=== PATIENT | female | born 1975 | race Caucasian/White ===

== ENCOUNTER 2019-11-14 09:14 | Emergency (ER) | payer MEDICAID, OTHER ==
[2019-11-14] MEDS ORDERED: FLU Vacc QS2019-20(6MOS+)/PF 60 MCG/0.5 ML SYRINGE IM ONE (10:00)
[2019-11-14] MEDS ORDERED: Albuterol/Ipratropium 3.0-0.5 MG/3 ML Neb Soln NEB ONE (10:00)
--- NOTE | 2019-11-14 10:13 | EDM.PDOC ---
<Luciana Guerrero - Last Filed: 11/14/19 10:42> ED HPI GENERAL MEDICAL PROBLEM - General Chief Complaint: Respiratory Problem Stated Complaint: TROUBLE WITH LUNGS Time Seen by Provider: 11/14/19 09:27 Source of Information: Reports: Patient History Limitations: Reports: No Limitations - History of Present Illness INITIAL COMMENTS - FREE TEXT/NARRATIVE: 44-year-old female presents with cough and shortness of breath lasting two weeks but worsening in the last three days. She states that she visited the walk -in clinic where they diagnosed her with acute bronchitis and started treatment with an albuterol inhaler, doxycycline, and tessalon pearles. She has also been using ibuprofen for chest pain caused by coughing. At the walk-in clinic, they performed a chest XR and flu swab, both of which where negative for any acute process. The patient states that the cough is productive, producing mostly clear fluid with occasional brown clumps of mucus. She does describe a bloody taste but denies hemoptysis. She notes that the cough has been so severe that she has been unable to catch her breath when getting up from a chair at times, and it is causing lower rib pain. She also notes a mild headache. The patient recently quit smoking November 03. She also has a history of sinus congestion, but denies any significant sinus congestion at this time. The patient also denies nausea, vomiting, diarrhea, body aches, ear pain, and throat pain. No history of asthma or COPD. Onset: Other (2 weeks prior) Duration: Getting Worse Location: Reports: Chest Improves with: Reports: None Worsens with: Reports: Movement Associated Symptoms: Reports: Chest Pain (musculoskeletal ), cough w sputum, Fever/Chills, Headaches, Shortness of Breath. 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, albuterol Chest Pain Score (Numeric/FACES): 7 (along lower rib borders) - Related Data Allergies Allergy/AdvReac Type Severity Reaction Status Date / Time No Known Allergies Allergy Verified 11/14/19 09:34 Home Meds: Home Meds Albuterol Sulfate [Albuterol Sulfate Hfa] 1 - 2 puff IH Q4H PRN 11/14/19 [ History] Benzonatate [Tessalon Perle] 100 mg PO ASDIRECTED 11/14/19 [History] Doxycycline [Vibramycin] 0 mg PO BID 11/14/19 [History] predniSONE [Prednisone] 50 mg PO DAILY #7 tablet 11/14/19 [Rx] Past Medical History Respiratory History: Reports: Bronchitis, Recurrent, Pneumonia, Recurrent 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 Social & Family History - Tobacco Use Smoking Status *Q: Former Smoker Years of Tobacco use: 25 Packs/Tins Daily: 1 Used Tobacco, but Quit: No Month/Year Tobacco Last Used: Nov 2019 Second Hand Smoke Exposure: Yes - Caffeine Use Caffeine Use: Reports: Coffee, Soda - Recreational Drug Use Recreational Drug Use: No ED ROS GENERAL - Review of Systems Review Of Systems: See Below Constitutional: Reports: Fever, Fatigue HEENT: Reports: No Symptoms Respiratory: Reports: Shortness of Breath, Pleuritic Chest Pain, Cough, Sputum. Denies: Hemoptysis Cardiovascular: Reports: Dyspnea on Exertion. Denies: Blood Pressure Problem, Lightheadedness, Palpitations, Syncope Endocrine: Reports: No Symptoms GI/Abdominal: Reports: No Symptoms : Reports: No Symptoms Musculoskeletal: Reports: No Symptoms Skin: Reports: No Symptoms Neurological: Reports: Headache. Denies: Dizziness, Syncope, Trouble Speaking, Difficulty Walking Psychiatric: Reports: No Symptoms Hematologic/Lymphatic: Reports: No Symptoms Immunologic: Reports: No Symptoms ED EXAM, GENERAL - Physical Exam Exam: See Below Exam Limited By: No Limitations General Appearance: Alert, Mild Distress Eye Exam: Bilateral Eye: EOMI, Normal Inspection, PERRL Ears: Normal External Exam, Hearing Grossly Normal, Normal TMs Ear Exam: Bilateral Ear: Erythema (canals ) Nose: Other (turbinates inflamed bilaterally). No: Nasal Tenderness, Nasal Drainage, Nasal Flaring Throat/Mouth: Normal Inspection, Normal Lips, Normal Oropharynx, Normal Voice, No Airway Compromise Head: Atraumatic, Normocephalic Neck: Normal Inspection, Supple, Non-Tender, Full Range of Motion. No: Lymphadenopathy (L), Lymphadenopathy (R) Respiratory/Chest: No Accessory Muscle Use, Chest Non-Tender, Respiratory Distress (mild), Wheezing (throughout ). No: Crackles, Rhonchi, Stridor, Retractions, Prolonged Expiration Cardiovascular: Normal Peripheral Pulses, Regular Rate, Rhythm, No Edema, No Murmur GI/Abdominal: Normal Bowel Sounds, Soft, Non-Tender Neurological: Alert, Oriented, Normal Cognition, Normal Gait Psychiatric: Normal Affect, Normal Mood Skin Exam: Warm, Dry, Intact, Normal Color, No Rash Lymphatic: No Adenopathy Course - Vital Signs Last Recorded V/S: Last Vital Signs Temp 97.5 F 11/14/19 09:25 Pulse 95 11/14/19 09:25 Resp 20 11/14/19 09:25 BP 137/92 H 11/14/19 09:25 Pulse Ox 93 L 11/14/19 11:29 - Orders/Labs/Meds Orders: Active Orders 24 hr Category Date Time Status Influenza Vaccine Charge [RC] .DISCHARGE Care 11/14/19 09:48 Active RT Aerosol Therapy [RC] ASDIRECTED Care 11/14/19 10:00 Active RT Aerosol Therapy [RC] ASDIRECTED Care 11/14/19 11:29 Active Meds: Medications Discontinued Medications Generic Name Dose Route Start Last Admin Trade Name Jesica PRN Reason Stop Dose Admin Albuterol 2.5 mg 11/14/19 11:28 11/14/19 12:08 Proventil Neb Soln [facility] 11/14/19 11:29 2.5 mg ONETIME ONE Administration Albuterol/Ipratropium 3 ml 11/14/19 10:00 11/14/19 10:08 Duoneb 3.0-0.5 Mg/3 Ml [facility] 11/14/19 10:01 3 ml ONETIME ONE Administration Influenza Virus Vaccine 1 each 11/14/19 09:48 Pharmacy To Dose - Influenza Vaccine IM 11/14/19 09:49 ONETIME ONE Influenza Virus Vaccine 60 mcg 11/14/19 10:00 11/14/19 11:43 Fluzone Quad [id number] Syringe IM 11/14/19 10:01 60 mcg .ONCE ONE Administration Prednisone 40 mg 11/14/19 11:26 11/14/19 11:32 Prednisone PO 11/14/19 11:27 40 mg ONETIME ONE Administration Departure - Departure Disposition: Home, Self-Care 01 Clinical Impression: Bronchitis, Wheezing - Discharge Information Prescriptions: predniSONE [Prednisone] 50 mg PO DAILY #7 tablet Instructions: Acute Bronchitis, Adult Referrals: PCP,None [Primary Care Provider] - Forms: ED Department Discharge Additional Instructions: Prednisone 50 mg this evening and than continue that for the next 6 days Q AM. Albuterol nebs q 4 to 6 hr as needed for severe cough/wheezing. The coughing will likely take 1 to 2 weeks to go away but symptoms will start improving over the next 2 to 3 days. Continue antibiotic as prescribed. Follow up clinic if not much better within 5 to 7 days as expected. Sepsis Event Note - Evaluation Sepsis Screening Result: No Definite Risk - Focused Exam Vital Signs: Vital Signs Temp Pulse Resp BP Pulse Ox Pulse Ox 11/14/19 11:29 93 L 11/14/19 10:09 96 11/14/19 09:25 97.5 F 95 20 137/92 H 93 L Date Exam was Performed: 11/14/19 Time Exam was Performed: 10:42 - My Orders Last 24 Hours: My Active Orders 11/14/19 09:48 Influenza Vaccine Charge [RC] .DISCHARGE 11/14/19 10:00 RT Aerosol Therapy [RC] ASDIRECTED 11/14/19 11:29 RT Aerosol Therapy [RC] ASDIRECTED - Assessment/Plan Last 24 Hours: My Active Orders 11/14/19 09:48 Influenza Vaccine Charge [RC] .DISCHARGE 11/14/19 10:00 RT Aerosol Therapy [RC] ASDIRECTED 11/14/19 11:29 RT Aerosol Therapy [RC] ASDIRECTED <Jeronimo Hannon L - Last Filed: 11/14/19 15:30> ED EXAM, GENERAL - Physical Exam General Appearance: Other (frequent nonprod cough) Extremities: Normal Inspection, No Pedal Edema Course - Re-Assessments/Exams Free Text/Narrative Re-Assessment/Exam: 11/14/19 11:45. Initial hx and exam was done by Anthony Guerrero. I have also evaluated and interviewed patient. I agree with hx and exam as documented. CXR nl. she has severe bronchitis, just quit days ago, flu screen neg. Will start on prednisone and albuterol neb treatments. 11/14/19 15:29 Departure - Departure Time of Disposition: 11:47 Condition: Fair Sepsis Event Note - Focused Exam Date Exam was Performed: 11/14/19 Time Exam was Performed: 15:27
[2019-11-14] MEDS ORDERED: predniSONE 20 MG Tab PO ONE (11:26)
[2019-11-14] MEDS ORDERED: Albuterol 0.083% 2.5 MG/3 ML Neb Soln NEB ONE (11:28)
--- NOTE | 2019-11-14 12:12 | CR ---
Chest: Two views of the chest were obtained. Comparison: No prior chest imaging. Heart size and mediastinum are normal. Lungs are clear. Bony structures are unremarkable. Impression: 1. Nothing acute is appreciated on two-view chest x-ray. Diagnostic code #1 This report was dictated in [place] Standard Time
== END 2019-11-14 12:25 | disposition home or self-care (01) ==
LOC: JD.ED 09:14
DX: J40 Bronchitis, not specified as acute or chronic (principal); Z23 Encounter for immunization; Z87.891 Personal history of nicotine dependence; Z79.899 Other long term (current) drug therapy
CPT/HCPCS: 71046; 87804; 90471; 90686; 94640; 99285; A9270; 99283; G0008; J7620-GY

== ENCOUNTER 2020-02-04 18:52 | Emergency (ER) | payer OTHER ==
--- NOTE | 2020-02-04 20:18 | EDM.PDOC ---
ED HPI GENERAL MEDICAL PROBLEM - General Chief Complaint: Respiratory Problem Stated Complaint: breathing and coughing attacks sob Time Seen by Provider: 02/04/20 19:22 Source of Information: Reports: Patient History Limitations: Reports: No Limitations - History of Present Illness INITIAL COMMENTS - FREE TEXT/NARRATIVE: Ms. Abel is a very pleasant 44-year-old woman with a past medical history significant for GERD and untreated psoriasis, who, medical records indicate, was seen in this ED on 11/14/2019 with a complaint at that time of dyspnea and a cough productive of clear sputum with occasional brown clumps since around . She stated that she had been to the walk-in clinic previously, where a chest x-ray and influenza swab were performed, both of which were unremarkable. She was diagnosed with bronchitis, and prescribed an albuterol MDI, doxycycline, and Tessalon Perles. She presented to the ED because these were not helping. She was found to be hemodynamically stable, afebrile, saturating 93% on room air. On examination, she had diffuse wheezing, otherwise, her examination was unremarkable. She was treated with a DuoNeb and albuterol neb, and started on prednisone. She was given an influenza vaccine prior to being discharged home with a diagnosis of bronchitis and a prescription for prednisone 50 mg daily x 7 days. The patient now returns to the ED with continued symptoms. She tells me that since her last visit to the ED, she has been seen by a midlevel at [facility] twice. She believes she has undergone 2 chest x-rays, most recently about 2 months ago. She has been diagnosed with bronchitis both times, and prescribed steroids 2 additional times. At some point she was also prescribed a nebulizer machine. The patient also states that she saw her PCP, who wanted her to undergo PFTs, but because of the COVID-19 situation, she has not been able to arrange for them yet. She states that she has continued to have dyspnea, even at rest, wheezing, and a cough, still productive of clear sputum, occasionally with some brown material. She states that her dyspnea, cough, and wheezing is no worse if she is upright versus supine. She has not had a fever. She has had some nasal congestion. Other than these symptoms, the patient denies recent chills, sore throat, ear pain, chest pain, palpitations, nausea, vomiting, constipation, diarrhea, abdominal pain, urinary symptoms, recent weight gain or weight loss, recent bloody bowel movements or black bowel movements, recent joint aches, headaches, or rashes. The patient tells me that her symptoms essentially resolve whenever she is on the steroids, but that they return when she is off of them. She is not sure what medicine she is taking through her nebulizer machine, but she states that she is using it "a lot" and that she is also using her albuterol MDI very frequently. She gets some relief after taking the nebulized medicine, but not much relief after using her MDI. The patient also states that her symptoms are worse with changes in ambient temperature, such as going outside or coming indoors. I asked the patient to demonstrate for me exactly how she uses her MDI. Her technique was very poor; she shook the MDI for less than 2 seconds, then put the MDI into her mouth before actuating it. She does not have a space chamber or peak flow meter. In addition to her prescribed medications, she also tells me that she has been taking Mucinex DM every morning, and TheraFlu both day and night. The patient states that she had similar symptoms last year, but that the duration was much shorter. Here in the ED, the patient's initial BP is found to be elevated at 166/98, otherwise, she is hemodynamically stable, afebrile, saturating 94% on room air. The patient's PCP is Yasmeen Gauthier NP. She received an influenza vaccine this season. - Related Data Allergies Allergy/AdvReac Type Severity Reaction Status Date / Time No Known Allergies Allergy Verified 02/04/20 19:09 Home Meds: Home Meds Albuterol Sulfate [Albuterol Sulfate Hfa] 1 - 2 puff IH Q4H PRN 11/14/19 [ History] Budesonide/Formoterol Fumarate [Budesonide-Formoterol 160-4.5] 2 inh IH Q12H #1 inhaler 02/04/20 [Rx] Montelukast [Singulair] 1 tab PO DAILY #30 tab 02/04/20 [Rx] predniSONE [Prednisone] 1 tab PO QPM #5 tablet 02/04/20 [Rx] Past Medical History Gastrointestinal History: Reports: GERD Musculoskeletal History: Reports: Fracture (right hand, right fibula) Endocrine/Metabolic History: Reports: Obesity/BMI 30+ Dermatologic History: Reports: Psoriasis (untreated) - Past Surgical History HEENT Surgical History: Reports: Other (See Below) (Left orbit reconstruction) Musculoskeletal Surgical History: Reports: Other (See Below) (Right hand pinning ) Social & Family History - Family History Family Medical History: Noncontributory - Tobacco Use Smoking Status *Q: Former Smoker Years of Tobacco use: 31 Packs/Tins Daily: 1 Month/Year Tobacco Last Used: Quit 11/03/2019 - Caffeine Use Caffeine Use: Reports: Coffee - Alcohol Use Alcohol Use History: Yes Alcohol Use Frequency: Socially - Recreational Drug Use Recreational Drug Use: Yes Drug Use in Last 12 Months: Yes Recreational Drug Type: Reports: Marijuana/Hashish (last smoked December 2019) - Living Situation & Occupation Living situation: Reports: (), with Significant 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 ED EXAM, GENERAL - Physical Exam Exam: See Below Exam Limited By: No Limitations General Appearance: Alert, WD/WN, No Apparent Distress Eye Exam: Bilateral Eye: EOMI, Normal Inspection Ears: Normal External Exam, Normal Canal, Hearing Grossly Normal, Normal TMs Nose: Normal Inspection, Normal Mucosa, No Blood Throat/Mouth: Normal Inspection, Normal Lips, Normal Teeth, Normal Gums, Normal Oropharynx, Normal Voice, No Airway Compromise Head: Atraumatic, Normocephalic Neck: Normal Inspection, Supple, Non-Tender, Full Range of Motion. No: Lymphadenopathy (L), Lymphadenopathy (R) Respiratory/Chest: No Respiratory Distress, No Accessory Muscle Use, Wheezing, Prolonged Expiration. No: Decreased Breath Sounds, Crackles, Rhonchi, Stridor Cardiovascular: Normal Peripheral Pulses, Regular Rate, Rhythm, No Edema, No Gallop, No JVD, No Murmur, No Rub Peripheral Pulses: 4+: Radial (L), Radial (R) GI/Abdominal: Normal Bowel Sounds, Soft, Non-Tender, No Organomegaly, No Distention, No Abnormal Bruit, No Mass (Female) Exam: Deferred Rectal (Female) Exam: Deferred Back Exam: Normal Inspection, Full Range of Motion, NT Extremities: Normal Inspection, Normal Range of Motion, No Pedal Edema, Normal Capillary Refill Neurological: Alert, Oriented, Normal Cognition, No Motor/Sensory Deficits Psychiatric: Normal Affect Skin Exam: Warm, Dry, Intact, Normal Color, No Rash Course - Vital Signs Last Recorded V/S: Last Vital Signs Temp 36.0 C L 02/04/20 19:04 Pulse 94 02/04/20 19:04 Resp 22 H 02/04/20 19:04 BP 166/98 H 02/04/20 19:04 Pulse Ox 94 L 02/04/20 19:04 - Orders/Labs/Meds Orders: Active Orders 24 hr Category Date Time Status RT Peak Flow Measurement [RC] ASDIRECTED Care 02/04/20 21:28 Active CORONAVIRUS COVID-19 PCR PHL [MREF] Stat Lab 02/04/20 19:48 Received Labs: Laboratory Tests 02/04/20 02/04/20 02/04/20 Range/Units 20:29 20:29 20:29 WBC 9.74 (3.98-10.04) K/mm3 RBC 4.34 (3.98-5.22) M/mm3 Hgb 13.0 (11.2-15.7) gm/dl Hct 39.5 (34.1-44.9) % MCV 91.0 (79.4-94.8) fl MCH 30.0 (25.6-32.2) pg MCHC 32.9 (32.2-35.5) g/dl RDW Std Deviation 44.6 (36.4-46.3) fL Plt Count 295 (182-369) K/mm3 MPV 9.6 (9.4-12.3) fl Neutrophils % (Manual) 55 (40-60) % Band Neutrophils % 0 (0-10) % Lymphocytes % (Manual) 30 (20-40) % Atypical Lymphs % 0 % Monocytes % (Manual) 5 (2-10) % Eosinophils % (Manual) 10 H (0.7-5.8) % Basophils % (Manual) 0 L (0.1-1.2) Platelet Estimate Adequate Plt Morphology Comment Normal RBC Morph Comment Normal D-Dimer, Quantitative < 0.19 L (0.19-0.50) mg/L Sodium 140 (136-145) mEq/L Potassium 3.6 (3.5-5.1) mEq/L Chloride 103 (98-107) mEq/L Carbon Dioxide 23 (21-32) mEq/L Anion Gap 17.6 H (5-15) BUN 11 (7-18) mg/dL Creatinine 0.7 (0.55-1.02) mg/dL Est Cr Clr Drug Dosing 90.36 mL/min Estimated GFR (MDRD) > 60 (>60) mL/min BUN/Creatinine Ratio 15.7 (14-18) Glucose 115 H (74-106) mg/dL Calcium 9.0 (8.5-10.1) mg/dL Magnesium 1.8 (1.8-2.4) mg/dl Total Bilirubin 0.3 (0.2-1.0) mg/dL AST 20 (15-37) U/L ALT 25 (14-59) U/L Alkaline Phosphatase 65 (46-116) U/L Total Protein 7.3 (6.4-8.2) g/dl Albumin 3.8 (3.4-5.0) g/dl Globulin 3.5 gm/dL Albumin/Globulin Ratio 1.1 (1-2) Meds: Medications Discontinued Medications Generic Name Dose Route Start Last Admin Trade Name Freq PRN Reason Stop Dose Admin Prednisone 60 mg 02/04/20 21:27 Prednisone PO 02/04/20 21:28 ONETIME STA - Re-Assessments/Exams Free Text/Narrative Re-Assessment/Exam: 02/04/20 19:49 It is certainly understandable why the patient has been diagnosed with bronchitis on 4 prior evaluations, however, acute bronchitis typically lasts for no more than 3 weeks, and, unfortunately, there are no medicines that have been shown to modify the patient's symptoms, however, this patient always gets relief while she is on prednisone, and she also gets relief from neb treatments better than an MDI, and I'll note that the patient's MDI technique was very poor , indicating that she gets relief from albuterol when properly taken. Additionally, her symptoms are no worse if supine, therefore it is highly unlikely that she has acute bronchitis, and it is far more likely that if she is suffering from undiagnosed asthma. Since the patient tells me that her PCP wanted her to undergo PFTs, I suspect that her PCP was also suspecting that she is suffering from underlying asthma. For today's purposes, I have ordered blood work and a chest x-ray, just to make sure that there is nothing else going on that might explain the patient's symptoms. 02/04/20 20:29 Two-view chest radiograph appears to be grossly normal. The cardiac silhouette is within normal limits. No pulmonary vascular congestion. No pleural effusions. No focal infiltrate. No pneumothorax. Formal read per the Radiologist pending. 02/04/20 21:13 The patient's CBC is unremarkable. Her CMP is remarkable for an anion gap mildly elevated at 17.6, but with a bicarbonate normal at 23. Her blood glucose is mildly elevated at 115, with the remainder of her CMP being unremarkable. Her magnesium level is normal at 1.8. Her D-dimer is undetectably low. 02/04/20 21:51 Test results discussed with the patient. As above, today's work-up is unremarkable. I explained to the patient that I cannot diagnose asthma at the bedside, that the diagnosis requires PFTs, but that I strongly suspect that she is suffering from uncontrolled asthma. I am recommending the followin. The patient will be given a peak flow meter per the respiratory therapist, and instructed on its use 2. The patient will be given a space chamber, and instructed on its use 3. Prednisone 60 mg now, then 20 mg/day for the next 5 days 4. Pulmicort 300 mcg Q12 hrs 5. Formoterol 12 mcg Q12 hrs 6. Singulair 10 mg/day 7. Albuterol as needed, preferably by MDI via her spacer chamber, otherwise via nebulization 8. Undergo PFTs when available The patient is agreeable. Departure - Departure Time of Disposition: 21:57 Disposition: Home, Self-Care 01 Condition: Good Clinical Impression: Uncontrolled persistent asthma - Discharge Information *PRESCRIPTION DRUG MONITORING PROGRAM REVIEWED*: Not Applicable *COPY OF PRESCRIPTION DRUG MONITORING REPORT IN PATIENT LAMONTE: Not Applicable Prescriptions: Budesonide/Formoterol Fumarate [Budesonide-Formoterol 160-4.5] 2 inh IH Q12H #1 inhaler Montelukast [Singulair] 1 tab PO DAILY #30 tab predniSONE [Prednisone] 1 tab PO QPM #5 tablet Referrals: Yasmeen Gauthier MD [Primary Care Provider] - Forms: ED Department Discharge Additional Instructions: You were seen in the emergency room for shortness of breath, wheezing, and coughing since the beginning of November. Work-up in the ER included blood work and a chest x-ray, all of which were unremarkable. You do not have pneumonia. You do not have bronchitis. Based on your history, physical exam, and ER tests, you are most likely suffering from uncontrolled asthma. You have been started on the steroid prednisone. Prescriptions for prednisone, along with budesonide/formoterol, and Singulair have been sent to the [facility] located in the [employer] store. Take 1 tablet of prednisone every evening, starting tomorrow evening, 02/05/2020, as prescribed. Take 2 inhalations of budesonide/formoterol every 12 hours, starting tomorrow morning, 02/05/2020, as prescribed. Take 1 tablet of Singulair every day, starting tomorrow, 02/05/2020, as prescribed. You have been provided with a peak flow meter and a space chamber per our respiratory therapist. Practice using her peak flow meter, and get to know your normal numbers. Once you are good at it, we recommend that you check your peak flow 2 or 3 times a week. If you are feeling well, but your peak flow drops into the yellow or red zone, contact your PCP, as this indicates that you may know up an asthma exacerbation within the next 2 weeks. If you are feeling short of breath with wheezing, with or without a cough, check your peak flow. If your peak flow is in the yellow or red zone, take albuterol. If it is in the green zone, do not take albuterol. It is very important that whenever you use your albuterol metered-dose inhaler ( MDI), that you shake it for 1 minute, then use your spacer chamber. If you are unable to use your MDI, you may take albuterol by nebulizer, however , be aware that the MDI with a spacer chamber is the most efficient way to get the medicine into your lungs. You may take albuterol as often as necessary, however, if you require it more often than every 4 hours to get adequate relief, you need to be seen by a doctor. Follow-up with your PCP, Yasmeen Gauthier NP, as soon as possible, to arrange for pulmonary function tests. If any other problems, please do not hesitate to return to the ER. *You were also screened for COVID-19. You will be notified with the result in the next day or two. In the meantime, we recommend that you continue to observe social isolation, and wear a mask whenever you are in public.* Sepsis Event Note - Evaluation Sepsis Screening Result: No Definite Risk - Focused Exam Vital Signs: Vital Signs Temp Pulse Resp BP Pulse Ox 02/04/20 19:04 36.0 C L 94 22 H 166/98 H 94 L Date Exam was Performed: 02/04/20 Time Exam was Performed: 22:12 - My Orders Last 24 Hours: My Active Orders 02/04/20 19:48 CORONAVIRUS COVID-19 PCR PHL [MREF] Stat 02/04/20 21:28 RT Peak Flow Measurement [RC] ASDIRECTED - Assessment/Plan Last 24 Hours: My Active Orders 02/04/20 19:48 CORONAVIRUS COVID-19 PCR PHL [MREF] Stat 02/04/20 21:28 RT Peak Flow Measurement [RC] ASDIRECTED
--- NOTE | 2020-02-04 20:31 | CR ---
Chest: 2 views of the chest were obtained. Comparison: Prior chest x-ray of 11/14/19. Heart size and mediastinum are normal. Lungs are clear with no acute parenchymal change. Bony structures are unremarkable. Impression: 1. Nothing acute is seen on 2 view chest x-ray. Diagnostic code #1 This report was dictated in MDT
[2020-02-04] MEDS ORDERED: predniSONE 20 MG Tab PO STA (21:27)
== END 2020-02-04 22:30 | disposition home or self-care (01) ==
LOC: JD.ED 18:52
DX: J45.909 Unspecified asthma, uncomplicated (principal); E66.9 Obesity, unspecified; Z68.38 Body mass index [BMI] 38.0-38.9, adult; Z87.891 Personal history of nicotine dependence; Z79.899 Other long term (current) drug therapy; Z20.828 Contact with and (suspected) exposure to other viral communicable diseases
CPT/HCPCS: 36415; 71046; 80053; 83735; 85007; 85027; 85379; 87635; 99285; A9270; 99283; U0002